=== PATIENT | female | born 1970 | race Two or more races ===

== ENCOUNTER 2023-10-10 09:50 | Day surgery (SDC) | payer OTHER, SELFPAY ==
--- NOTE | 2023-10-10 10:00 | FL_ITS ---
[address] [address] Patient Name: ROSALIA LEON MRN: [id number] date: 1970 Sex: F Assigned Patient Location: [place] Current [place] Location: [place] Accession/Order Number: [id number] Exam Date: 10/10/2023 10:30 Report Date: 10/10/2023 11:05 At the request of: NIK STERN Procedure: FL guided needle placement EXAMINATION: FL hip inj LT, FL guided needle placement HISTORY: Left Hip Arthritis COMPARISON: No relevant comparison available. FLUOROSCOPY TIME: Fluoro time measures 1.2 and 1 images were obtained. TECHNIQUE: A joint injection was performed in the usual sterile manner after obtaining informed consent. Standard level fluoroscopic mode of operation utilized. FINDINGS: JOINT: Left hip. NEEDLE: 22 gauge, 5.5 spinal needle. MEDICATION: 5cc buffered 1% lidocaine for subcutaneous anesthesia 2cc Omnipaque-300 iodinated contrast to visualize the joint space Mixture of Kenalog 40 mg, 0.5% Bupivacaine 2 mL and Omnipaque 300 10mL was injected into the joint space. TECHNIQUE: Anterior approach with prior localization of the femoral artery. A single stick was successful in gaining access to the joint space. CLINICAL: 6/10 pain before the injection. 2 out of 10 pain after the injection. COMPLICATIONS: None. OTHER: Negative. FL/FL guided needle placement IMPRESSION: Technically successful left hip therapeutic arthrogram Electronically authenticated by: DORA PALACIOS Date: 10/10/2023 11:05
--- NOTE | 2023-10-10 10:00 | FL_ITS ---
The [address] [address] Patient Name: ROSALIA LEON MRN: [id number] date: 1970 Sex: F Assigned Patient Location: [place] Current Patient Location: [place] Accession/Order Number: [id number] Exam Date: 10/10/2023 10:30 Report Date: 10/10/2023 11:05 At the request of: NIK STERN Procedure: FL hip inj LT EXAMINATION: FL hip inj LT, FL guided needle placement HISTORY: Left Hip Arthritis COMPARISON: No relevant comparison available. FLUOROSCOPY TIME: Fluoro time measures 1.2 and 1 images were obtained. TECHNIQUE: A joint injection was performed in the usual sterile manner after obtaining informed consent. Standard level fluoroscopic mode of operation utilized. FINDINGS: JOINT: Left hip. NEEDLE: 22 gauge, 5.5 spinal needle. MEDICATION: 5cc buffered 1% lidocaine for subcutaneous anesthesia 2cc Omnipaque-300 iodinated contrast to visualize the joint space Mixture of Kenalog 40 mg, 0.5% Bupivacaine 2 mL and Omnipaque 300 10mL was injected into the joint space. TECHNIQUE: Anterior approach with prior localization of the femoral artery. A single stick was successful in gaining access to the joint space. CLINICAL: 6/10 pain before the injection. 2 out of 10 pain after the injection. COMPLICATIONS: None. OTHER: Negative. FL/FL hip inj LT IMPRESSION: Technically successful left hip therapeutic arthrogram Electronically authenticated by: DORA PALACIOS Date: 10/10/2023 11:05
[2023-10-10] MEDS: BUPIVACAINE HCL 0.5% PF 50 MG/10 ML VIAL 2 ML INJ (10:35)
[2023-10-10] MEDS: TRIAMCINOLONE ACETONIDE 40 MG/ML VIAL INJ (10:35)
[2023-10-10] MEDS: LIDOCAINE HCL 10 ML, SODIUM BICARBONATE 1 MEQ INJ (10:35)
--- NOTE | 2023-10-10 11:10 | SUR.PREOP ---
10/02/23 Pt instructed on procedure, date, time, and prep.
== END 2023-10-10 10:55 | disposition home or self-care (01) ==
LOC: FL 09:56
PROVIDERS: Radiology Diagnostic Radiology; PCP Internal Medicine; Visit Provider Orthopaedic Surgery
DX: M16.12 Unilateral primary osteoarthritis, left hip (principal)
CPT/HCPCS: 20610; 77002; Q9967